=== PATIENT | male | born 1990 | race Caucasian/White ===

== ENCOUNTER 2021-11-27 05:19 | Inpatient (IN) | payer OTHER ==
[~2021-11-27] VITALS: Ht 185.4 cm; Wt 100.0 kg
[~2021-11-27 05:19] MED LIST: RALTEGRAVIR 400 MG TAB (ISENTRESS) PO SCH; TRUVADA 200MG/300MG TABLET PO SCH
[2021-11-27 08:44] LABS: BASO # 0.1 10^3/uL (0.0-0.2); BASO % 0.5 % (0.0-1.0); EOS # 0.1 10^3/uL (0.0-0.5); EOS % 0.7 % (0.0-3.0); HEMATOCRIT 46.1 % (42.0-52.0); HEMOGLOBIN 15.8 g/dl (13.5-17.5); LYMPH # 1.9 10^3/uL (1.5-5.0); LYMPH % 19.4 % (24.0-44.0); MEAN CORPUSCULAR HEMOGLOBIN 28.5 pg (27.0-33.0); MEAN CORPUSCULAR HGB CONC 34.3 g/dl (32.0-36.5); MEAN CORPUSCULAR VOLUME 83.2 fl (80.0-96.0); MONO # 0.7 10^3/uL (0.0-0.8); MONO % 7.3 % (2.0-8.0); NEUTROPHILS # 7.2 10^3/uL (1.5-8.5); NEUTROPHILS % 71.7 % (36.0-66.0); PLATELET COUNT, AUTOMATED 256 10^3/uL (150-450); RED BLOOD COUNT 5.54 10^6/uL (4.30-6.10)
[2021-11-27 09:08] LABS: ALBUMIN 4.3 GM/DL (3.2-5.2); ALT/SGPT 34 U/L (12-78); BLOOD UREA NITROGEN 14 MG/DL (7-18); CALCIUM LEVEL 9.6 MG/DL (8.5-10.1); CARBON DIOXIDE LEVEL 25 MEQ/L (21-32); CHLORIDE LEVEL 108 MEQ/L (98-107); CREATININE FOR GFR 1.02 MG/DL (0.70-1.30); GLOMERULAR FILTRATION RATE > 60.0 (>60); GLUCOSE, FASTING 84 MG/DL (70-100); POTASSIUM SERUM 4.3 MEQ/L (3.5-5.1); SODIUM LEVEL 142 MEQ/L (136-145); TOTAL PROTEIN 7.9 GM/DL (6.4-8.2)
[2021-11-27 09:16] LABS: AMPHETAMINES LEVEL URINE NEGATIVE (NEGATIVE); BARBITURATES URINE NEGATIVE (NEGATIVE); BENZODIAZEPINES URINE NEGATIVE (NEGATIVE); CANNABINOIDS URINE NEGATIVE (NEGATIVE); COCAINE METABOLITE URINE NEGATIVE (NEGATIVE); METHADONE URINE NEGATIVE (NEGATIVE); OPIATES URINE NEGATIVE (NEGATIVE); PHENCYCLIDINE URINE NEGATIVE (NEGATIVE)
[2021-11-27 09:29] LABS: HEPATITIS B SURFACE ANTIBODY POSITIVE (POSITIVE)
[2021-11-27 09:39] LABS: HEPATITIS B SURFACE ANTIGEN NEGATIVE (NEGATIVE)
[2021-11-27 10:07] LABS: HEPATITIS C VIRUS ABY INDEX 0.1 INDEX (<0.8)
[2021-11-27 10:08] LABS: HIV 1&2 SCREEN CENTAUR NEGATIVE (NEGATIVE)
[2021-11-27] MEDS ORDERED: metroNIDAZOLE (FLAGYL) 500MG TABLET PO ONE (12:05)
[2021-11-27] MEDS ORDERED: cefTRIAXone 500MG VIAL (J0696 PER 250MG) IM ONE (12:05)
[2021-11-27] MEDS ORDERED: LIDOCAINE 1% SDV 5ML VIAL DILUENT ONE (12:05)
[2021-11-27] MEDS ORDERED: EXPOSURE KIT-ADULT 7 DAY SUPPLY PO ONE (12:05)
[2021-11-27] MEDS ORDERED: DOXYCYCLINE HYCLATE 100MG TABLET PO ONE (12:05)
[2021-11-27] MEDS ORDERED: TRUVADA 200MG/300MG TABLET PO ONE (12:45)
[2021-11-27] MEDS ORDERED: RALTEGRAVIR 400 MG TAB (ISENTRESS) PO ONE (12:45)
[2021-11-27] MEDS ORDERED: RALT40TA PO (17:04)
[2021-11-27] MEDS ORDERED: EMTR1TAB16 PO (17:04)
[2021-11-27] MEDS ORDERED: DOXY-443 PO (17:04)
[2021-11-27] MEDS ORDERED: OLANZapine ORAL DISINTEGRATING TAB 5MG PO PRN ×2 (18:05→18:15)
[2021-11-27] MEDS ORDERED: traZODone 50 MG TAB PO PRN ×2 (18:05→18:15)
[2021-11-27] MEDS ORDERED: MAALOX 30 ML SUSP *UDC PO PRN ×2 (18:05→18:15)
[2021-11-27] MEDS ORDERED: ACETAMINOPHEN TAB 650MG DOSE (2X325MG) PO PRN ×2 (18:05→18:15)
[2021-11-27] MEDS ORDERED: MOM 30ML SUSPENSION UDC PO PRN ×2 (18:05→18:15)
[2021-11-27] MEDS ORDERED: OMEP-173 PO (18:32)
[2021-11-27 18:34] VITALS: BP 151/88
[2021-11-27] MEDS ORDERED: HOME MED LIST COMPLETE! XX SCH (18:35)
[2021-11-28 06:31] VITALS: BP 93/53
[2021-11-28] MEDS: TRUVADA 200MG/300MG TABLET PO SCH (15:28)
[2021-11-28] MEDS: RALTEGRAVIR 400 MG TAB (ISENTRESS) PO SCH ×2 (15:29→21:23)
[2021-11-28 18:14] VITALS: BP 140/77
[2021-11-29 06:31] VITALS: BP 127/60
[2021-11-29] MEDS: TRUVADA 200MG/300MG TABLET PO SCH (09:29)
[2021-11-29] MEDS: RALTEGRAVIR 400 MG TAB (ISENTRESS) PO SCH (09:29)
[2021-11-29] MEDS ORDERED: EMTR1TAB3 PO (09:46)
[2021-11-29] MEDS ORDERED: RALT40TA PO (09:46)
== END 2021-11-29 13:03 | disposition home or self-care (01) | DRG 882 ==
LOC: M ED 05:19 → M ED INP 18:01 → M ED 18:13 → M PSY 18:29
PROVIDERS: ADMIT Psychiatry & Neurology Psychiatry; ATTEND Psychiatry & Neurology Psychiatry
DX: F43.20 Adjustment disorder, unspecified (principal); F33.1 Major depressive disorder, recurrent, moderate; R45.851 Suicidal ideations; T76.21XA Adult sexual abuse, suspected, initial encounter; F43.10 Post-traumatic stress disorder, unspecified; Z91.51 Personal history of suicidal behavior; Z63.4 Disappearance and death of family member; F17.210 Nicotine dependence, cigarettes, uncomplicated; Z79.2 Long term (current) use of antibiotics; Z79.899 Other long term (current) drug therapy; Z90.49 Acquired absence of other specified parts of digestive tract; R51.9 Headache, unspecified; F10.10 Alcohol abuse, uncomplicated